=== PATIENT | male | born 1960 | race Caucasian/White ===

== ENCOUNTER → 2019-06-13 13:56 | Emergency (ER) | payer BC ==
[~2019-06-13 13:56] MED LIST: Lidocaine 1% INJ* 10 MG/ML 30 ML SDV INJ ONE; Tetan/Diph/Pertus SYR(Tdap)* 0.5 ML SYR(BOOSTRIX) use SYR IM ONE; ceFAZolin 1 GM ADVAN(*) 1 GM in NS 0.9% 50 ML* 50 ML IVPB ONE
--- NOTE | 2019-06-13 15:58 | ED ---
Laceration/Wound HPI - HPI Summary HPI Summary: 59-year-old male presents with right pinky finger laceration today. He states he was [place] [employer]. And he got it caught between 2 carts. He states the area is not currently bleeding. Denies any foreign body to the wound. He states he has a lot of pain into the finger. No numbness tingling. Nail is partially avulsed off. He is left-handed. 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 unsure when tetanus was. - History of Current Complaint Stated Complaint: INJURY TO RIGHT HAND PER PATIENT Time Seen by Provider: 06/13/19 14:19 Pain Intensity: 6 - Allergy/Home Medications Allergies/Adverse Reactions: Allergies Allergy/AdvReac Type Severity Reaction Status Date / Time No Known Allergies Allergy Verified 06/13/19 14:01 PMH/Surg Hx/FS Hx/Imm Hx Endocrine/Hematology History: Denies: Hx Anticoagulant Therapy Cardiovascular History: Denies: Hx Auto Implanted Cardiovert Defib Infectious Disease History: No Infectious Disease History: Denies: Traveled Outside the [place] in Last 30 Days - Family History Known Family History: Positive: Non-Contributory - Social History Alcohol Use: None Substance Use Type: Reports: None Smoking Status (MU): Never Smoked Tobacco Review of Systems Negative: Fever Negative: Chest Pain Negative: Shortness Of Breath Positive: Other - right pinky finger laceration All Other Systems Reviewed And Are Negative: Yes Physical Exam Triage Information Reviewed: Yes Vital Signs On Initial Exam: Initial Vitals Temp Pulse Resp BP Pulse Ox 96.7 F 91 18 164/102 94 06/13/19 13:59 06/13/19 13:59 06/13/19 13:59 06/13/19 13:59 06/13/19 13:59 Vital Signs Reviewed: Yes Appearance: Positive: Well-Appearing Skin: Positive: Other - 3cm by 1/2cm laceration through nail bed right little finger, partially avulsed nail Head/Face: Positive: Normal Head/Face Inspection Eyes: Positive: Normal, Conjunctiva Clear ENT: Positive: Pharynx normal Respiratory/Lung Sounds: Positive: Clear to Auscultation, Breath Sounds Present Cardiovascular: Positive: Normal, RRR Musculoskeletal: Positive: Strength/ROM Intact - right pinky, Other - good pulses Neurological: Positive: Normal Psychiatric: Positive: Normal Procedures - Splinting finger Location: finger Pre-Made Type: foam Pre-Proc Neuro Vasc Exam: normal Post-Proc Neuro Vasc Exam: normal - Laceration/Wound Repair 1 Location: Other - right pinky Description: Irregular Anesthesia: Digital, 1.0% Length, Depth and Shape: 3cm by 1/2cm Irrigated w/ Saline (ccs): 1,000 Suture Type: Prolene, Vicryl Number of Sutures: 5 - 2 vicryl and 3 prolene Sterile Dressing Applied?: Yes - xeroform, telfa, and splint and coband Diagnostics - Vital Signs Vital Signs Temp Pulse Resp BP Pulse Ox 06/13/19 13:59 96.7 F 91 18 164/102 94 - Laboratory Lab Statement: Any lab studies that have been ordered have been reviewed, and results considered in the medical decision making process. - Radiology finger Radiology Interpretation Completed By: Radiologist Summary of Radiographic Findings: IMPRESSION: Oblique fracture through the distal tuft of the distal phalanx of the fifth. digit. Laceration Repair Course/Dx - Course Course Of Treatment: 59-year-old male presents with right pinky finger laceration today. He states he was [place] [employer]. And he got it caught between 2 carts. He states the area is not currently bleeding. Denies any foreign body to the wound. He states he has a lot of pain into the finger. No numbness tingling. Nail is partially avulsed off. He is left-handed. 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 On exam has 3cm by 1/ 2cm laceration with nail avulsion. nail partially intact. placed 3 prolene and 2 vicryl sutures, placed nail back in nail bed and secure with glue. performed nail trepidation. Placed splint on finger and wrapped finger. gave dose of ancef and tetanus. Will place patient on Keflex. Told to follow-up with orthopedic. Patient understands agrees plan. - Differential Dx Differental Diagnoses: Abrasion, Avulsion, Laceration - Clinical Impression Provider Diagnoses: Open fracture of tuft of distal phalanx of right thumb, Nail avulsion Discharge - Sign-Out/Discharge Documenting (check all that apply): Patient Departure Patient Received Moderate/Deep Sedation with Procedure: No - Discharge Plan Condition: Good Disposition: HOME Prescriptions: Cephalexin CAP* [Keflex CAP*] 500 mg PO TID #21 cap HYDROcodone/ACETAMIN 5-325 MG* [[place]frey 5-325 TAB*] 1 tab PO Q6H PRN #12 tab MDD 4 PRN Reason: Pain Patient Education Materials: Care For Your Stitches (ED), Finger Fracture (ED) Referrals: No Primary Care Phys,NOPCP [Primary Care Provider] - Additional Instructions: Take Keflex twice a day for 7 days Keep area clean and dry for 24 hours, do not soak area keep splint on area and change dressing daily Take Tylenol or ibuprofen for pain every 6 hours, use norco every 6 hours for break through pain Return to ED or ortho for suture removal in 8-10 days Follow up with ortho Return to ED if develop signs of infection such as fever, spreading redness, or pus formation - Billing Disposition and Condition Condition: GOOD Disposition: Home
[2019-06-13 17:01] VITALS: BP 140/88
== END | disposition home or self-care (01) ==
LOC: ED 13:56
DX: S62.636B Displaced fracture of distal phalanx of right little finger, initial encounter for open fracture (principal); S61.306A Unspecified open wound of right little finger with damage to nail, initial encounter; W23.0XXA Caught, crushed, jammed, or pinched between moving objects, initial encounter; Y92.512 Supermarket, store or market as the place of occurrence of the external cause; Z23 Encounter for immunization
CPT/HCPCS: 12002; 73140; 90471; 90715; 96372; 96374; 99282; J0690